=== PATIENT | female | born 1970 | race African-American/Black ===

== ENCOUNTER 2019-08-07 00:37 | Emergency (ER) | payer OTHER ==
[~2019-08-07] VITALS: Ht 172.7 cm; Wt 116.3 kg
[~2019-08-07 00:37] MED LIST: CYCL10TA2 PO; HYDR-2761 PO; LISI10TA2 PO; LORA10TA3 PO; OMEP40CA45 PO
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
[2019-08-07 01:39] VITALS: BP 165/73
[2019-08-07] MEDS ORDERED: HYDROcodone/APAP 10/325 1 TAB TABLET PO ONE (01:45)
[2019-08-07] MEDS ORDERED: HYDR-3164 PO (01:56)
[2019-08-07] MEDS ORDERED: ORPH100T PO (01:56)
[2019-08-07] MEDS ORDERED: DICL50TA4 PO (01:56)
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
== END 2019-08-07 02:10 | disposition home or self-care (01) ==
LOC: ER 00:37
DX: S20.211A Contusion of right front wall of thorax, initial encounter (principal); S09.90XA Unspecified injury of head, initial encounter; R05 Cough; G43.909 Migraine, unspecified, not intractable, without status migrainosus; I10 Essential (primary) hypertension; E03.9 Hypothyroidism, unspecified; V49.49XA Driver injured in collision with other motor vehicles in traffic accident, initial encounter; Y92.488 Other paved roadways as the place of occurrence of the external cause; Y93.89 Activity, other specified; Y99.8 Other external cause status
CPT/HCPCS: 70450; 71250; 99285-25

== ENCOUNTER 2020-06-09 23:19 | Emergency (ER) | payer OTHER ==
[~2020-06-09] VITALS: Ht 172.7 cm; Wt 111.0 kg
[~2020-06-09 23:19] MED LIST changes: +DICL50TA4 PO; +HYDR-3164 PO; +LISI10TA16 PO; -LISI10TA2 PO; +ORPH100T PO
[2020-06-09 23:20] VITALS: BP 165/70
--- NOTE | 2020-06-10 01:41 | RAD ---
CT head without contrast dated 06/10/2020. No comparison available. Clinical data indication: Right-sided numbness. TECHNIQUE: Contiguous axial imaging the head was performed from skull base to vertex. No contrast administered. One or more of the following individualized dose reduction techniques were utilized for this examinat ion: 1. Automated exposure control 2. Adjustment of the mA and/or kV according to patient size 3. Use of iterative reconstruction technique. FINDINGS: Ventricles and sulci are within normal limits for age. No midline shift or mass effect. Brain parench yma is of normal attenuation. No hemorrhage or extra-axial collection. Posterior fossa and brainstem unremarkable. There is mild mucosal thickening of the ethmoid air cells. The visualized paranasal sinuses and masto id air cells are otherwise clear. No apparent calvarial abnormality. IMPRESSION: 1. No evidence of acute intracranial abnormality. 2. Mild sinus disease. Electronically signed by: Arun Simon MD (06/10/2020 1:39 AM) [facility]
[2020-06-10] MEDS ORDERED: METH-561 PO (02:23)
--- NOTE | 2020-06-10 02:23 | ED.ADGEN ---
Past Medical History Past Medical History: Arrhythmia, Hypertension, Migraines, Other Additional Past Medical Histor: CHORNIC BACK PAIN Past Surgical History: Hysterectomy, Other Additional Past Surgical Histo: cardiac ablation, VEIN SX Smoking Status: Never Smoker Alcohol Use: None Drug Use: None General Adult EDM: Chief Complaint: HEADACHE HPI: HPI: Patient is a 49-year-old female who presents to the emergency room complaining of headache and neck pain after an injury that happened on Friday. Patient states that she was working in the basement when she stood up and hit the top of her head on a pole. She states since that time she has been having intermittent headaches that are worse at the top of her head. She states she has some associated nausea and will get intermittent numbness in her right leg. She also has been having bilateral neck tenderness. She states she has been able to move around without difficulty. She denies any other injuries. She denies losing consciousness. She does not have any amnesia. She is not on any blood thinners. Review of Systems: Review of Systems: Complete ROS is negative unless otherwise documented in HPI Current Medications: Current Medications Medications (Trade) Dose Ordered Sig/Андрей Start Time Stop Time Status Last Admin Dose Admin Sumatriptan Succinate (Imitrex) 25 mg 1X ONCE 06/10/20 01:00 06/10/20 01:01 DC Allergies: Allergies: Allergies Coded Allergies Type Severity Reaction Last Updated Verified No Known Drug Allergies 08/07/19 No Physical Exam: PE: General: Awake, alert, NAD. Well Nourished, well hydrated. Cooperative HEENT: Atraumatic, EOMI, PERRL, airway patent, moist oral mucosa Neck: Supple, trachea midline Respiratory: CTA bilaterally, normal effort, no wheezing/crackles CV: RRR, no murmur, cap refill <2 GI: Soft, nondistended, nontender, no masses MSK: No obvious deformities Skin: Warm, dry, intact Neuro: A&O x3, speech NL, 5/5 strength in BUE/BLE distally and proximally, CN 2- 12 intact, cerebellar testing normal Psych: Normal affect, normal mood, not suicidal or homicidal Current Patient Data: Vital Signs: Vital Signs Date Time Temp Pulse Resp B/P (MAP) Pulse Ox O2 Delivery O2 Flow Rate FiO2 06/09/20 23:20 98.3 96 18 165/70 (101) 98 Room Air 98.3 EKG: EKG: [] Heart Score: C/O Chest Pain: N/A Risk Factors: Risk Factors: DM, Current or recent (<one month) smoker, HTN, HLP, family history of CAD, obesity. Risk Scores: Score 0 - 3: 2.5% MACE over next 6 weeks - Discharge Home Score 4 - 6: 20.3% MACE over next 6 weeks - Admit for Clinical Observation Score 7 - 10: 72.7% MACE over next 6 weeks - Early Invasive Strategies Radiology/Procedures: Radiology/Procedures: [] Course & Med Decision Making: Course & Med Decision Making Pertinent Labs and Imaging studies reviewed. (See chart for details) Patient is a 49-year-old female who presents to the emergency room after sustaining a closed head injury 3 days prior to arrival. Patient does complain of a possible intermittent focal neurologic deficit of numbness. Due to this we will do a CT head to rule out a subdural hematoma. CT is negative. Patient will be treated symptomatically. Patient's test results and vitals while in the ED were fully reviewed and discussed with the patient. Patient is stable and at this time does not need admission to the hospital. We have discussed strict return precautions and the importance of following up with their Primary Care Physician. Patient stated understanding and was given an opportunity to ask any questions. Patient is in agreement with plan. Dm Disclaimer: Dm Disclaimer: This electronic medical record was generated, in whole or in part, using a voice recognition dictation system. Departure Departure Impression: Primary Impression: Closed head injury Disposition: HOME / SELF CARE / HOMELESS Condition: STABLE Referrals: CORY SANTIAGO (PCP) Patient Instructions: Concussion and Brain Injury Scripts Methocarbamol (METHOCARBAMOL) 500 Mg Tablet 500 MG PO QID PRN for PAIN for 3 Days, #12 TAB Prov: VIOLET PECK MD 06/10/20 VIOLET PECK MD June 10, 2020 02:23
== END 2020-06-10 02:50 | disposition home or self-care (01) ==
LOC: ER 23:19
DX: S09.90XA Unspecified injury of head, initial encounter (principal); M54.2 Cervicalgia; R11.0 Nausea; R20.0 Anesthesia of skin; G43.909 Migraine, unspecified, not intractable, without status migrainosus; I10 Essential (primary) hypertension; G89.29 Other chronic pain; W22.8XXA Striking against or struck by other objects, initial encounter; Y93.89 Activity, other specified; Y92.89 Other specified places as the place of occurrence of the external cause; Y99.8 Other external cause status
CPT/HCPCS: 70450; 99284